=== PATIENT | female | born 1945 | race Caucasian/White ===

== ENCOUNTER 2025-05-11 15:44 | Emergency (ER) | payer MEDICARE, OTHER ==
[2025-05-11 16:25] LABS: GLUCOSE,URINE NEGATIVE (NEGATIVE); OCCULT BLOOD,URINE SMALL (NEGATIVE)
[2025-05-11 16:34] LABS: APPEARANCE,URINE SLIGHTLY CLOUDY (CLEAR); SQUAMOUS EPITHELIAL CELLS,UR FEW /HPF
[2025-05-11 16:53] LABS: BASOPHILS PERCENT AUTO 0.3 % (0.1-1.3); EOSINOPHILS PERCENT AUTO 0.0 % (0.0-5.4); IMMATURE GRAN ABSOLUTE AUTO 0.05 K/uL (0.00-0.23); IMMATURE GRAN PERCENT AUTO 0.8 % (0.0-0.7); LYMPHOCYTES ABSOLUTE AUTO 0.36 K/uL (0.8-3.3); LYMPHOCYTES PERCENT AUTO 6.0 % (11.4-47.7); MONOCYTES ABSOLUTE AUTO 0.35 K/uL (0.20-0.90); MONOCYTES PERCENT AUTO 5.9 % (3.3-12.6); NEUTROPHILS ABSOLUTE AUTO 5.18 K/uL (1.0-7.6); NEUTROPHILS PERCENT AUTO 87.0 % (40.0-78.1); PLATELET COUNT,PLT 181 K/uL (130-375); RED BLOOD CELL COUNT 5.39 M/uL (3.77-5.24); WHITE BLOOD CELL COUNT,WBC 6.0 K/uL (3.2-11.0)
[2025-05-11 16:54] LABS: BASOPHILS ABSOLUTE AUTO 0.02 K/uL (0.00-0.10); EOSINOPHILS ABSOLUTE AUTO 0.00 K/uL (0.00-0.40)
[2025-05-11 16:55] LABS: BASE EXCESS VENOUS 1.2 mm/L; BICARBONATE,VENOUS 24.5 mmol/L; O2 SATURATION VENOUS 48.2; OXYHEMOGLOBIN 47.0 %; PCO2 VENOUS 36.3 mm/Hg; PH,VENOUS 7.443 (7.350-7.450); TOTAL HEMOGLOBIN 16.6 g/dL (12.0-16.0)
[2025-05-11 16:58] LABS: PO2 VENOUS 26.6 mm/Hg
[2025-05-11] MEDS: Ondansetron 4 MG/2 ML SDV IVPUSH ONE (17:10)
[2025-05-11] MEDS: Ketorolac 30 MG/ML SDV IVPUSH ONE (17:10)
[2025-05-11 17:24] LABS: A/G RATIO 0.9 (1.2-2.2); ALANINE AMINOTRANSFERASE,ALT 29 U/L (12-78); ASPARTATE AMNIOTRANSFERASE,AST 20 U/L (15-37); BILIRUBIN TOTAL 0.6 mg/dL (0.2-1.0); BLOOD UREA NITROGEN,BUN 9 mg/dL (7-18); CARBON DIOXIDE,CO2 25 mmol/L (21-32); CHLORIDE,CL 95 mmol/L (100-108); CREATININE 0.8 mg/dL (0.6-1.0); EST CRCL DRUG DOSING (CG) 47.17 mL/min; ESTIMATED GFR 75 mL/min (>60); GLUCOSE RANDOM 163 mg/dL (74-106); POTASSIUM,K 3.2 mmol/L (3.6-5.2); PROTEIN TOTAL,TP 7.9 g/dL (6.4-8.2); SODIUM,NA 134 mmol/L (140-148); TROPONIN I HIGH SENSITIVITY 8.2 pg/mL (<=60.3)
[2025-05-11] MEDS ORDERED: Potassium Chloride 10 MEQ Cap.ER PO ONE (18:02)
== END 2025-05-11 18:33 | disposition home or self-care (01) ==
LOC: JP.ED 15:44
DX: E87.6 Hypokalemia (principal); E86.0 Dehydration; N39.0 Urinary tract infection, site not specified; Z79.899 Other long term (current) drug therapy; Z79.890 Hormone replacement therapy; Z79.82 Long term (current) use of aspirin; Z88.2 Allergy status to sulfonamides; Z91.040 Latex allergy status; Z88.8 Allergy status to other drugs, medicaments and biological substances
CPT/HCPCS: 36415; 71045; 80053; 81001; 82803; 83605; 83690; 83735; 84484; 85025; 86140; 87086; 87426; 93005; 93010; 96361; 96374; 96375; 99284; 99285; A9270; J1885; J2405; J7030